=== PATIENT | female | born 1940 | race Caucasian/White ===

== ENCOUNTER 2017-10-01 22:13 | Inpatient (IN) | payer MEDICARE ==
[~2017-10-01] VITALS: Ht 170.2 cm; Wt 101.3 kg
[~2017-10-01 22:13] MED LIST: ASPI81CH PO; ATOR10 PO; CLON.2 PO; CLOP75 PO; FLUO10 PO; GLIM4 PO; HAIR SKIN NAIL1 EACH PO; HYDR10 PO; INSULANPEN SC; LISI20 PO; LORA.5 PO; METF500 PO; METO50 PO; NAPR500 PO; Norco 10-325 T1 EACH PO; SITA100T2 PO
[2017-10-01 23:31] LABS: Hematocrit 22.2 % (33.0-51.0); Mean Corpuscular HGB Conc 31.5 g/dL (31.5-36.5); Mean Corpuscular Volume 95 fL (80-100); Mean Platelet Volume 9.9 fL (9.1-12.4); Platelet Count 240 K/mm3 (150-400); RDW Coefficient Variation 17.7 % (11.7-14.2); RDW Standard Deviation 61.8 fL (35.1-46.3); Red Blood Cell Count 2.33 M/mm3 (3.80-5.20)
[2017-10-01 23:33] LABS: White Blood Cell Count 53.91 K/mm3 (4.00-11.30)
[2017-10-01 23:49] LABS: Alanine Aminotransfer (ALT/SGP 16 U/L (12-78); Albumin, Blood 2.4 g/dL (3.4-5.0); Alk Phos 114 U/L (50-136); Anion Gap 18 mmol/L (6-16); Aspartate Aminotrans (AST/SGOT 20 U/L (12-37); BAND PERCENT MAN 4 % (0-8); BASOPHILS PERCENT MAN 0 % (0-2); Bilirubin, Total 0.8 mg/dL (0.1-1.0); Blood Urea Nitrogen 56 mg/dL (8-24); Bun/Creatinine Ratio 68.5 (12.0-20.0); CO2, Blood 15 mmol/L (21-32); Chloride, Blood 107 mmol/L (98-108); Creatinine, Blood 0.82 mg/dL (0.40-1.00); EOSINOPHILS PERCENT MAN 0 % (0-6); Globulin, Blood 2.4 g/dL (2.2-4.0); Glomerular Filtration Rate >60 (60-); Glucose, Blood 320 mg/dL (70-99); LYMPHOCYTES ABSOLUTE MAN 0.53 K/mm3 (0.84-5.20); LYMPHOCYTES PERCENT MAN 1 % (21-46); METAMYELOCYTE ABSOLUTE MAN 0.53 K/mm3 (0.00-0.00); METAMYELOCYTE PERCENT MAN 1 % (0-0); MONOCYTES PERCENT MAN 0 % (4-13); MYELOCYTE ABSOLUTE MAN 1.61 K/mm3 (0.00-0.00); MYELOCYTE PERCENT MAN 3 % (0-0); NEUTROPHILS ABSOLUTE MAN 51.21 K/mm3 (1.96-9.15); Potassium, Blood 4.8 mmol/L (3.5-5.5); SEG NEUTROPHILS PERCENT MAN 91 % (41-73); Sodium, Blood 140 mmol/L (136-145); TOTAL CELLS COUNTED 100; Total Protein, Blood 4.8 g/dL (6.4-8.2)
[2017-10-02 00:18] LABS: Source, Urine Catheter
[2017-10-02 00:20] LABS: Bilirubin, Urine Neg (Neg); Blood, Urine 2+ (Neg); Glucose Qualitative, Urine 3+ (Neg); Ketones, Urine 3+ (Neg); Leukocyte Esterase, Urine 1+ (Neg); Nitrite, Urine Neg (Neg); Protein, Urine 1+ (Neg); Urobilinogen, Urine NORM (Normal)
[2017-10-02 00:30] LABS: Appearance, Urine Clear (Clear); Color, Urine Yellow (P-Yellow)
[2017-10-02 00:31] LABS: Amorphous Light (0-Heavy); Bacteria Rare /hpf; Red Blood Cells, Urine Not Seen /hpf (0-2); Squamous Epithelial Cells Not Seen /hpf (Few)
[2017-10-02] MEDS ORDERED: LISI20 PO (01:48)
[2017-10-02 11:03] LABS: Hematocrit 24.1 % (33.0-51.0); Hemoglobin 8.1 g/dL (11.5-16.0); Mean Corpuscular HGB 29.6 pg (26.0-34.0); Mean Corpuscular HGB Conc 33.6 g/dL (31.5-36.5); Mean Platelet Volume 9.7 fL (9.1-12.4); Platelet Count 133 K/mm3 (150-400); RDW Coefficient Variation 16.7 % (11.7-14.2); Red Blood Cell Count 2.74 M/mm3 (3.80-5.20); White Blood Cell Count 24.07 K/mm3 (4.00-11.30)
[2017-10-02 11:08] LABS: Mean Corpuscular Volume 88 fL (80-100)
[2017-10-03 02:46] LABS: Hematocrit 22.7 % (33.0-51.0); Hemoglobin 7.6 g/dL (11.5-16.0); Mean Corpuscular HGB 28.8 pg (26.0-34.0); Mean Corpuscular HGB Conc 33.5 g/dL (31.5-36.5); Mean Corpuscular Volume 86 fL (80-100); Mean Platelet Volume 9.5 fL (9.1-12.4); Platelet Count 101 K/mm3 (150-400); RDW Standard Deviation 54.2 fL (35.1-46.3); Red Blood Cell Count 2.64 M/mm3 (3.80-5.20); White Blood Cell Count 8.19 K/mm3 (4.00-11.30)
[2017-10-03 03:06] LABS: Alanine Aminotransfer (ALT/SGP 16 U/L (12-78); Albumin, Blood 2.3 g/dL (3.4-5.0); Albumin/Globulin Ratio 1.2 (0.8-1.8); Alk Phos 83 U/L (50-136); Anion Gap 7 mmol/L (6-16); Aspartate Aminotrans (AST/SGOT 26 U/L (12-37); Bilirubin, Total 0.8 mg/dL (0.1-1.0); Blood Urea Nitrogen 26 mg/dL (8-24); Bun/Creatinine Ratio 36.9 (12.0-20.0); CO2, Blood 25 mmol/L (21-32); Calcium, Blood 7.3 mg/dL (8.5-10.1); Chloride, Blood 112 mmol/L (98-108); Globulin, Blood 1.9 g/dL (2.2-4.0); Glomerular Filtration Rate >60 (60-); Glucose, Blood 108 mg/dL (70-99); Potassium, Blood 3.4 mmol/L (3.5-5.5); Sodium, Blood 144 mmol/L (136-145); Total Protein, Blood 4.2 g/dL (6.4-8.2)
[2017-10-03 03:24] LABS: BAND PERCENT MAN 1 % (0-8); BASOPHILS ABSOLUTE MAN 0.08 K/mm3 (0.00-0.23); BASOPHILS PERCENT MAN 1 % (0-2); EOSINOPHILS PERCENT MAN 5 % (0-6); LYMPHOCYTES ABSOLUTE MAN 0.98 K/mm3 (0.84-5.20); LYMPHOCYTES PERCENT MAN 12 % (21-46); MONOCYTES ABSOLUTE MAN 0.16 K/mm3 (0.16-1.47); MONOCYTES PERCENT MAN 2 % (4-13); NEUTROPHILS ABSOLUTE MAN 6.55 K/mm3 (1.96-9.15); SEG NEUTROPHILS PERCENT MAN 79 % (41-73); TOTAL CELLS COUNTED 100
[2017-10-04 04:11] LABS: BASOPHILS ABSOLUTE AUTO 0.01 K/mm3 (0.00-0.23); BASOPHILS PERCENT AUTO 0 % (0-2); EOSINOPHILS ABSOLUTE AUTO 0.32 K/mm3 (0.00-0.68); EOSINOPHILS PERCENT AUTO 5 % (0-6); Hematocrit 24.4 % (33.0-51.0); Hemoglobin 8.1 g/dL (11.5-16.0); IMMATURE GRAN ABSOLUTE AUTO 0.02 K/mm3 (0.00-0.10); IMMATURE GRAN PERCENT AUTO 0 % (0-1); LYMPHOCYTES ABSOLUTE AUTO 0.96 K/mm3 (0.84-5.20); LYMPHOCYTES PERCENT AUTO 15 % (21-46); MONOCYTES ABSOLUTE AUTO 0.51 K/mm3 (0.16-1.47); MONOCYTES PERCENT AUTO 8 % (4-13); Mean Corpuscular HGB 29.2 pg (26.0-34.0); Mean Corpuscular HGB Conc 33.2 g/dL (31.5-36.5); Mean Corpuscular Volume 88 fL (80-100); Mean Platelet Volume 9.8 fL (9.1-12.4); NEUTROPHILS ABSOLUTE AUTO 4.78 K/mm3 (1.96-9.15); NEUTROPHILS PERCENT AUTO 73 % (41-73); Platelet Count 111 K/mm3 (150-400); RDW Coefficient Variation 16.4 % (11.7-14.2); RDW Standard Deviation 53.1 fL (35.1-46.3); Red Blood Cell Count 2.77 M/mm3 (3.80-5.20)
[2017-10-04 04:15] LABS: Anion Gap 5 mmol/L (6-16); Blood Urea Nitrogen 10 mg/dL (8-24); Bun/Creatinine Ratio 15.8 (12.0-20.0); CO2, Blood 26 mmol/L (21-32); Calcium, Blood 7.6 mg/dL (8.5-10.1); Chloride, Blood 109 mmol/L (98-108); Creatinine, Blood 0.63 mg/dL (0.40-1.00); Glomerular Filtration Rate >60 (60-); Glucose, Blood 97 mg/dL (70-99); Potassium, Blood 3.2 mmol/L (3.5-5.5); Sodium, Blood 140 mmol/L (136-145)
[2017-10-05 05:29] LABS: Hematocrit 25.7 % (33.0-51.0); Hemoglobin 8.5 g/dL (11.5-16.0); Mean Corpuscular HGB 28.8 pg (26.0-34.0); Mean Corpuscular HGB Conc 33.1 g/dL (31.5-36.5); Mean Corpuscular Volume 87 fL (80-100); Mean Platelet Volume 9.9 fL (9.1-12.4); Platelet Count 126 K/mm3 (150-400); RDW Coefficient Variation 15.9 % (11.7-14.2); RDW Standard Deviation 50.7 fL (35.1-46.3); Red Blood Cell Count 2.95 M/mm3 (3.80-5.20); White Blood Cell Count 7.59 K/mm3 (4.00-11.30)
[2017-10-05 05:52] LABS: BAND PERCENT MAN 6 % (0-8); BASOPHILS PERCENT MAN 0 % (0-2); EOSINOPHILS PERCENT MAN 0 % (0-6); LYMPHOCYTES ABSOLUTE MAN 1.44 K/mm3 (0.84-5.20); LYMPHOCYTES PERCENT MAN 19 % (21-46); METAMYELOCYTE ABSOLUTE MAN 0.15 K/mm3 (0.00-0.00); METAMYELOCYTE PERCENT MAN 2 % (0-0); MONOCYTES ABSOLUTE MAN 0.22 K/mm3 (0.16-1.47); MONOCYTES PERCENT MAN 3 % (4-13); NEUTROPHILS ABSOLUTE MAN 5.76 K/mm3 (1.96-9.15); SEG NEUTROPHILS PERCENT MAN 70 % (41-73); TOTAL CELLS COUNTED 100
[2017-10-06 05:11] LABS: BASOPHILS ABSOLUTE AUTO 0.02 K/mm3 (0.00-0.23); BASOPHILS PERCENT AUTO 0 % (0-2); EOSINOPHILS PERCENT AUTO 2 % (0-6); Hematocrit 23.8 % (33.0-51.0); Hemoglobin 8.1 g/dL (11.5-16.0); IMMATURE GRAN ABSOLUTE AUTO 0.08 K/mm3 (0.00-0.10); IMMATURE GRAN PERCENT AUTO 2 % (0-1); LYMPHOCYTES ABSOLUTE AUTO 1.55 K/mm3 (0.84-5.20); LYMPHOCYTES PERCENT AUTO 29 % (21-46); MONOCYTES PERCENT AUTO 13 % (4-13); Mean Corpuscular HGB 29.1 pg (26.0-34.0); Mean Corpuscular Volume 86 fL (80-100); Mean Platelet Volume 9.8 fL (9.1-12.4); NEUTROPHILS ABSOLUTE AUTO 2.84 K/mm3 (1.96-9.15); NEUTROPHILS PERCENT AUTO 54 % (41-73); Platelet Count 124 K/mm3 (150-400); RDW Coefficient Variation 15.6 % (11.7-14.2); RDW Standard Deviation 49.2 fL (35.1-46.3); Red Blood Cell Count 2.78 M/mm3 (3.80-5.20); White Blood Cell Count 5.29 K/mm3 (4.00-11.30)
[2017-10-06 05:47] LABS: Alanine Aminotransfer (ALT/SGP 28 U/L (12-78); Albumin, Blood 2.6 g/dL (3.4-5.0); Albumin/Globulin Ratio 1.1 (0.8-1.8); Alk Phos 98 U/L (50-136); Anion Gap 7 mmol/L (6-16); Aspartate Aminotrans (AST/SGOT 30 U/L (12-37); Bilirubin, Total 0.4 mg/dL (0.1-1.0); Blood Urea Nitrogen 5 mg/dL (8-24); Bun/Creatinine Ratio 8.6 (12.0-20.0); CO2, Blood 29 mmol/L (21-32); Chloride, Blood 107 mmol/L (98-108); Creatinine, Blood 0.58 mg/dL (0.40-1.00); Globulin, Blood 2.3 g/dL (2.2-4.0); Glomerular Filtration Rate >60 (60-); Glucose, Blood 90 mg/dL (70-99); Sodium, Blood 143 mmol/L (136-145); Total Protein, Blood 4.9 g/dL (6.4-8.2)
[2017-10-07] MEDS ORDERED: ACET325 PO (10:11)
[2017-10-07] MEDS ORDERED: Amoxicillin500 MG PO (10:12)
[2017-10-07] MEDS ORDERED: CLON.1 PO (10:13)
[2017-10-07] MEDS ORDERED: LOSA50 PO (10:14)
[2017-10-07] MEDS ORDERED: NYSTATIN1 EAC1 TOP (10:15)
[2017-10-07] MEDS ORDERED: POTCHL10ER PO (10:16)
[2017-10-07] MEDS ORDERED: PANT40 PO (10:16)
[2018-07-11] MEDS ORDERED: HYDR10 PO (11:53)
[2018-07-11] MEDS ORDERED: Metoprolol Tart25 MG PO (11:54)
[2018-07-11] MEDS ORDERED: CLON.1 PO (11:54)
[2018-07-11] MEDS ORDERED: GLIM4 PO (11:54)
[2018-07-11] MEDS ORDERED: METF500C PO (11:55)
[2018-07-11] MEDS ORDERED: INSULANPEN SC (11:55)
[2018-07-11] MEDS ORDERED: SITA100T2 PO (11:55)
[2018-07-11] MEDS ORDERED: CLOP75 PO (11:56)
[2018-07-11] MEDS ORDERED: MELA3 PO (11:56)
[2018-07-11] MEDS ORDERED: Omega 3 1,0001 EACH PO (11:56)
[2018-07-11] MEDS ORDERED: LO-DOSE ASPIRIN81 MG PO (11:57)
[2018-07-11] MEDS ORDERED: OXYB5 PO (11:57)
[2018-07-11] MEDS ORDERED: HALO.5 PO (11:58)
[2018-07-11] MEDS ORDERED: METOCLOPRAM5 MG/5 ML PO (11:59)
[2018-07-11] MEDS ORDERED: Prozac20 MG PO (11:59)
[2018-07-11] MEDS ORDERED: Omeprazole20 M1 PO (12:00)
[2018-07-13] MEDS ORDERED: CIPR500 PO (10:31)
[2018-07-13] MEDS ORDERED: HYDR1TAB94 PO (10:31)
== END 2017-10-08 18:13 | disposition home or self-care (01) | DRG 871 ==
LOC: ER 22:13 → PCU 10-02 00:10 → MEDS 10-04 18:23 → ENPENDDIS 10-07 10:06 → EDPENDDIS 10-07 11:08 → EDPENDDISTM 10-07 11:08 → MEDS 10-08 18:13
PROVIDERS: Emergency Medicine; Family Medicine; Hospitalist
PROC: 30233N1 Transfusion of Nonautologous Red Blood Cells into Peripheral Vein, Percutaneous Approach (ICD-10-PCS; principal; 2017-10-02)
PROC: 3E0234Z Introduction of Serum, Toxoid and Vaccine into Muscle, Percutaneous Approach (ICD-10-PCS; 2017-10-02)
DX: A41.9 Sepsis, unspecified organism (principal); G93.41 Metabolic encephalopathy; E87.2 Acidosis; K92.2 Gastrointestinal hemorrhage, unspecified; E11.40 Type 2 diabetes mellitus with diabetic neuropathy, unspecified; E66.01 Morbid (severe) obesity due to excess calories; N39.0 Urinary tract infection, site not specified; C50.911 Malignant neoplasm of unspecified site of right female breast; B95.5 Unspecified streptococcus as the cause of diseases classified elsewhere; D50.0 Iron deficiency anemia secondary to blood loss (chronic); D72.829 Elevated white blood cell count, unspecified; E11.9 Type 2 diabetes mellitus without complications; F32.9 Major depressive disorder, single episode, unspecified; I10 Essential (primary) hypertension; T45.8X5A Adverse effect of other primarily systemic and hematological agents, initial encounter; Z23 Encounter for immunization; F41.9 Anxiety disorder, unspecified; Z68.34 Body mass index [BMI] 34.0-34.9, adult
CPT/HCPCS: 36415; 36430; 51701; 51702; 70450; 71045; 74018; 80048; 80053; 81001; 82272; 82947; 83605; 83690; 85025; 85027; 86850; 86900; 86901; 86920; 87040; 87086; 93005; 93010; 96374; 96375; 97110; 97116; 97162; 97530; 99285; C1751; C9113; G8978; G8979; J0360; J0696; J1815; J1817; J2060; J2270; J2405; J7030; P9016

== ENCOUNTER → 2018-11-09 | Outpatient (CLI) | payer MEDICARE ==
[~2018-11-09] MED LIST changes: +ACET325 PO; +Amoxicillin500 MG PO; +CIPR500 PO; +CLON.1 PO; +HALO.5 PO; +HYDR1TAB94 PO; +LO-DOSE ASPIRIN81 MG PO; +LOSA50 PO; +MELA3 PO; +METF500C PO; +METOCLOPRAM5 MG/5 ML PO; +Metoprolol Tart25 MG PO; +NYSTATIN1 EAC1 TOP; +OXYB5 PO; +Omega 3 1,0001 EACH PO; +Omeprazole20 M1 PO; +PANT40 PO; +POTCHL10ER PO; +Prozac20 MG PO
== END | disposition home or self-care (01) ==
LOC: LAB SHORT 18:20 → LAB 18:20
DX: N39.3 Stress incontinence (female) (male) (principal)
CPT/HCPCS: 87086

== ENCOUNTER → 2019-02-14 | Outpatient (CLI) | payer MEDICARE ==
[2019-02-14 19:17] LABS: Free Thyroxine 1.25 ng/dL (0.70-1.60)
[2019-02-14 19:24] LABS: Alanine Aminotransfer (ALT/SGP 41 U/L (12-78); Albumin, Blood 3.4 g/dL (3.4-5.0); Albumin/Globulin Ratio 0.9 (0.8-1.8); Alk Phos 101 U/L (50-136); Anion Gap 9 mmol/L (6-16); Aspartate Aminotrans (AST/SGOT 30 U/L (12-37); Bilirubin, Total 0.3 mg/dL (0.1-1.0); Blood Urea Nitrogen 23 mg/dL (8-24); Bun/Creatinine Ratio 30.9 (12.0-20.0); CO2, Blood 22 mmol/L (21-32); Calcium, Blood 8.7 mg/dL (8.5-10.1); Chloride, Blood 108 mmol/L (98-108); Creatinine, Blood 0.75 mg/dL (0.40-1.00); Globulin, Blood 3.6 g/dL (2.2-4.0); Glomerular Filtration Rate >60 (60-); Glucose, Blood 110 mg/dL (70-99); Potassium, Blood 4.2 mmol/L (3.5-5.5); Sodium, Blood 139 mmol/L (136-145)
== END | disposition home or self-care (01) ==
LOC: LAB 18:45 → LAB SHORT 18:45
PROVIDERS: Hospitalist
DX: I10 Essential (primary) hypertension (principal)
CPT/HCPCS: 80053; 84439; 84443

== ENCOUNTER → 2019-09-14 | Outpatient (CLI) | payer MEDICARE | END | disposition home or self-care (01) | LOC: LAB SHORT 19:01 → LAB 19:01 | DX: N39.0 Urinary tract infection, site not specified (principal) | CPT/HCPCS: 87086 ==

== ENCOUNTER 2020-03-15 10:57 | Inpatient (IN) | payer MEDICARE ==
[~2020-03-15] VITALS: Ht 172.7 cm; Wt 107.1 kg
[2020-03-15] MEDS ORDERED: CLON.1 PO (11:46)
[2020-03-15] MEDS ORDERED: HYDR10 PO (11:47)
--- NOTE | 2020-03-15 12:16 | NUR ---
INTO [facility] VIA WHEELCHAIR WITH AT BEDSIDE. History, Chart, Medications and Allergies reviewed before start of procedure.Patient confirms NPO status and agrees with scheduled surgery. Patient reports completing Chlorhexadine shower X2 prior to admission to hospital.Surgical site prepped with 2% Chlorhexidine cloth wipe. Lungs clear T/O to Auscultation.PT CONFUSED AT BASELINE. REPORTS COMPLETION OF SHOWERS AND MUPIROCIN OINTMENT IN NAIRS PRESCRIBED
--- NOTE | 2020-03-15 18:53 | NUR ---
PATIENT MORE RELAXED AFTER PO AND IV PAIN MEDS ADMIN. CIRC CHECKS TO RLE WNL. ICE PACK IN PLACE. IVF INFUSING PER ORDER. SPOUSE AT BEDSIDE. CALL LIGHT IN REACH. BED ALARM IN PLACE. FC PATENT AND DRAINING. WILL REPORT TO BUTCH PATEL.
[2020-03-16 04:40] LABS: BASOPHILS ABSOLUTE AUTO 0.02 K/mm3 (0.00-0.23); BASOPHILS PERCENT AUTO 0 % (0-2); EOSINOPHILS ABSOLUTE AUTO 0.02 K/mm3 (0.00-0.68); EOSINOPHILS PERCENT AUTO 0 % (0-6); Hematocrit 32.6 % (33.0-51.0); Hemoglobin 10.1 g/dL (11.5-16.0); IMMATURE GRAN ABSOLUTE AUTO 0.05 K/mm3 (0.00-0.10); IMMATURE GRAN PERCENT AUTO 0 % (0-1); LYMPHOCYTES ABSOLUTE AUTO 1.11 K/mm3 (0.84-5.20); LYMPHOCYTES PERCENT AUTO 10 % (21-46); MONOCYTES ABSOLUTE AUTO 1.06 K/mm3 (0.16-1.47); MONOCYTES PERCENT AUTO 9 % (4-13); Mean Corpuscular HGB 28.7 pg (26.0-34.0); Mean Corpuscular Volume 93 fL (80-100); Mean Platelet Volume 10.2 fL (9.1-12.4); NEUTROPHILS ABSOLUTE AUTO 9.15 K/mm3 (1.96-9.15); NEUTROPHILS PERCENT AUTO 80 % (41-73); Platelet Count 124 K/mm3 (150-400); RDW Standard Deviation 47.4 fL (35.1-46.3); Red Blood Cell Count 3.52 M/mm3 (3.80-5.20); White Blood Cell Count 11.41 K/mm3 (4.00-11.30)
[2020-03-16 05:00] LABS: Bun/Creatinine Ratio 17.2 (12.0-20.0); Creatinine, Blood 1.16 mg/dL (0.40-1.00); Magnesium, Blood 1.9 mg/dL (1.6-2.4); Potassium, Blood 4.7 mmol/L (3.5-5.5)
--- NOTE | 2020-03-16 06:38 | NUR ---
SHIFT SUMMARY: DESTINY IS A&OX2. SHE DID HAVE SOME ADDITIONAL CONFUSION DURING THE NIGHT, THINKING THAT SHE NEEDED TO GET UP FOR SURGERY. IS TOLERATING PO INTAKE WELL, VORACIOUS APPETITE. EDUCATED ON DIABETIC DIET. IV TO R WRIST PATENT, SALINE LOCKED. AQUACELL TO R KNEE C/D&I, POLAR PACK IN PLACE. CONTINUOUS PULSE OX IN PLACE. VSS, NO ACUTE EVENTS OVERNIGHT. SATURATIONS MAINTAINING WITH 2 L VIA NC. AT BEDSIDE. WILL REPORT TO DAY SHIFT RN.
--- NOTE | 2020-03-16 16:44 | NUR ---
SHIFT SUMMARY PT A&OX1-2, FORGETFUL, PLEASANT AND COOPERATIVE; AT BEDSIDE. POD1 R TKA, AQUACEL CDI, TEDS/SCDS/POLAR GRACE. PAIN MANAGED WITH OXYCODONE, TYLENOL AND TORADOL. STACIA PO, DENIES N&V. CBGS AC/HS; LUNCH REQUIRED COVERAGE. AMB W/FWW & GB, 1 PP MOD ASSIST TO BRP/CHAIR/BED. VOIDING WELL. WILL REPORT TO ONCOMING NOC RN.
--- NOTE | 2020-03-17 04:34 | NUR ---
SHIFT SUMMARY: DESTINY IS A&O X 1-2. VSS, NO ACUTE EVENTS OVERNIGHT. SHE IS A ONE PERSON ASSIST TO THE BEDSIDE COMMODE. SHE HAS URINARY FREQUENCY AND OCCASIONAL INCONTINENCE, ATTENDS IN PLACE. SHE IS TOLERATING PO INTAKE WELL. IV TO R WRIST PATENT. AT BEDSIDE. CONTINUOUS PULSE OX IN PLACE, MAINTAINING OXYGEN SATURATIONS ORA. SHE IS ABLE TO MAKE HER NEEDS KNOWN, USES THE CALL LIGHT APPROPRIATELY. WILL REPORT TO DAY SHIFT RN.
--- NOTE | 2020-03-17 18:32 | NUR ---
SHIFT SUMMARY PT A&OX2, PLEASANT & COOPERATIVE, AT BEDSIDE. POD2 R TKA, AQUACEL CDI, TEDS/SCDS/POLAR GRACE. PAIN MANAGED WITH 10 MG OXYCODONE, TORADOL & TYLENOL. BIOX AT BEDSIDE; RA. STACIA PO, DENIES N&V. CBGS LUNCH COVERAGE REQ. AMB SBA FWW & GB TO BRP/BED/CHAIR. VOIDING WELL; SOFT BMS TODAY. WILL REPORT TO ONCOMING NOC RN.
--- NOTE | 2020-03-18 05:18 | NUR ---
SHIFT SUMMARY PT IS ALERT, ORIENTED TO SELF AND FAMILY. PT VERY FORGETFUL / CONFUSED. PT HAS BEEN UP TO COMMODE OR BATHROOM FREQUENTLY T/O SHIFT AND HAS ALSO HAD SEVERAL INCONTINENT VOIDS. PT USES FWW AND GAIT BELT WITH 1X ASSIST WHEN UP. ATTENS IN PLACE AND CHANGED PRN. PAIN MANAGED WITH PO PAIN MED PER ORDER. PT TOLERATING WELL. BED ALARM IN USE T/O SHIFT. POLAR PACK IN PLACE. AQUACEL CDI. NO ACUTE CHANGES.
--- NOTE | 2020-03-18 09:32 | NUR ---
RECENTLY GIVEN REPORT AND AM ASSUMING CARE OF PT.
--- NOTE | 2020-03-18 09:34 | NUR ---
PT RECENTLY WORKING WITH THERAPY WITH FAMILY IN ROOM.
--- NOTE | 2020-03-18 10:33 | NUR ---
NOEMI GIVEN REPORT AND IS ASSUMING CARE OF PT AT THIS TIME.
--- NOTE | 2020-03-18 15:56 | NUR ---
DISCHARGE: PT DC TO [facility] AT THIS TIME WITH WHEELCHAIR TRANSPORT. BELONGINGS SENT WITH PT/. NOTIFIED HE WILL BE UNABLE TO STAY WITH HER AT REHAB. DRESSING SUPPLIES AND POLAR PACK SENT. PT BLOOD SUGAR 211 PRIOR TO DC, TREATED PER SLIDING SCALE AND MEDICATED WITH TYLENOL SCHEDULED. NO IV. REPORT CALLED TO ACCEPTING RN.
== END 2020-03-18 16:25 | DRG 470 ==
LOC: ORSCMMR 10:57 → SURS 17:12 → ORSCMMR 03-16 11:56 → SURS 03-16 11:57
PROVIDERS: ADMIT Orthopaedic Surgery
PROC: 0SRC0J9 Replacement of Right Knee Joint with Synthetic Substitute, Cemented, Open Approach (ICD-10-PCS; principal; 2020-03-15 12:30)
DX: M17.11 Unilateral primary osteoarthritis, right knee (principal); I10 Essential (primary) hypertension; E11.9 Type 2 diabetes mellitus without complications; Z87.891 Personal history of nicotine dependence
CPT/HCPCS: 36415; 73560-RT; 80048; 82947; 83735; 85025; 94762; 97110; 97116; 97162; A9270; A9270-GY; C1713; C1776; J0171; J0690; J0735; J1100; J1170; J1885; J2370; J2405; J2704; J2795; J3010; J7120; U0002

== ENCOUNTER → 2020-09-24 | Outpatient (CLI) | payer MEDICARE ==
[~2020-09-24] MED LIST changes: +AZIT250 PO; +BASAGLAR K100 UNIT/1 SC; +Buspirone HCl15 MG PO; +CEPH500 PO; +DEXA2; +DULO60 PO; +HUMALOG MI100 UNIT/2 SC; +HYDPAM25 PO; +INSULIN LI100 UNIT/7 SQ; +MUPIROCIN1 G1 TOP; +Seroquel Xr50 MG PO; +TRIDERM28.4 GM TOP; +[UNRECOGNIZED DRUG - OTHER] TOP
[2020-09-24 19:48] LABS: BASOPHILS ABSOLUTE AUTO 0.05 K/mm3 (0.00-0.23); BASOPHILS PERCENT AUTO 1 % (0-2); EOSINOPHILS ABSOLUTE AUTO 0.51 K/mm3 (0.00-0.68); EOSINOPHILS PERCENT AUTO 7 % (0-6); Hematocrit 41.6 % (33.0-51.0); IMMATURE GRAN ABSOLUTE AUTO 0.02 K/mm3 (0.00-0.10); IMMATURE GRAN PERCENT AUTO 0 % (0-1); LYMPHOCYTES ABSOLUTE AUTO 1.65 K/mm3 (0.84-5.20); LYMPHOCYTES PERCENT AUTO 23 % (21-46); MONOCYTES ABSOLUTE AUTO 0.45 K/mm3 (0.16-1.47); MONOCYTES PERCENT AUTO 6 % (4-13); Mean Corpuscular HGB 26.5 pg (26.0-34.0); Mean Corpuscular HGB Conc 31.3 g/dL (31.5-36.5); Mean Corpuscular Volume 85 fL (80-100); Mean Platelet Volume 10.2 fL (9.1-12.4); NEUTROPHILS ABSOLUTE AUTO 4.57 K/mm3 (1.96-9.15); NEUTROPHILS PERCENT AUTO 63 % (41-73); Platelet Count 129 K/mm3 (150-400); RDW Coefficient Variation 14.2 % (11.7-14.2); RDW Standard Deviation 44.1 fL (35.1-46.3); Red Blood Cell Count 4.91 M/mm3 (3.80-5.20); White Blood Cell Count 7.25 K/mm3 (4.00-11.30)
[2020-09-24 20:40] LABS: Albumin/Globulin Ratio 0.8 (0.8-1.8); Bilirubin, Total 0.3 mg/dL (0.1-1.0); Creatinine, Blood 1.06 mg/dL (0.40-1.00); Globulin, Blood 3.6 g/dL (2.2-4.0); Potassium, Blood 4.1 mmol/L (3.5-5.5); Total Protein, Blood 6.6 g/dL (6.4-8.2)
== END ==
LOC: LAB SHORT 15:50
PROVIDERS: Hospitalist
DX: E11.42 Type 2 diabetes mellitus with diabetic polyneuropathy (principal); L50.9 Urticaria, unspecified
CPT/HCPCS: 80053; 83036; 85025

== ENCOUNTER 2020-11-13 21:09 | Inpatient (IN) | payer MEDICARE ==
[~2020-11-13] VITALS: Ht 170.2 cm; Wt 111.1 kg
[~2020-11-13 21:09] MED LIST changes: -AZIT250 PO; -BASAGLAR K100 UNIT/1 SC; -Buspirone HCl15 MG PO; -DEXA2; -DULO60 PO; -HUMALOG MI100 UNIT/2 SC; -HYDPAM25 PO; -INSULIN LI100 UNIT/7 SQ; -MUPIROCIN1 G1 TOP; -Seroquel Xr50 MG PO; -TRIDERM28.4 GM TOP; -[UNRECOGNIZED DRUG - OTHER] TOP
[2020-11-13] MEDS ORDERED: INSULIN LI100 UNIT/7 SQ (21:36)
[2020-11-13 21:43] LABS: BASOPHILS ABSOLUTE AUTO 0.01 K/mm3 (0.00-0.23); BASOPHILS PERCENT AUTO 0 % (0-2); EOSINOPHILS ABSOLUTE AUTO 0.02 K/mm3 (0.00-0.68); EOSINOPHILS PERCENT AUTO 1 % (0-6); Hematocrit 42.7 % (33.0-51.0); Hemoglobin 14.2 g/dL (11.5-16.0); IMMATURE GRAN ABSOLUTE AUTO 0.02 K/mm3 (0.00-0.10); IMMATURE GRAN PERCENT AUTO 1 % (0-1); LYMPHOCYTES ABSOLUTE AUTO 0.81 K/mm3 (0.84-5.20); LYMPHOCYTES PERCENT AUTO 32 % (21-46); MONOCYTES ABSOLUTE AUTO 0.22 K/mm3 (0.16-1.47); MONOCYTES PERCENT AUTO 9 % (4-13); Mean Corpuscular HGB 27.3 pg (26.0-34.0); Mean Corpuscular HGB Conc 33.3 g/dL (31.5-36.5); Mean Corpuscular Volume 82 fL (80-100); Mean Platelet Volume 11.2 fL (9.1-12.4); NEUTROPHILS ABSOLUTE AUTO 1.45 K/mm3 (1.96-9.15); NEUTROPHILS PERCENT AUTO 57 % (41-73); Platelet Count 52 K/mm3 (150-400); RDW Coefficient Variation 13.7 % (11.7-14.2); RDW Standard Deviation 40.8 fL (35.1-46.3); White Blood Cell Count 2.53 K/mm3 (4.00-11.30)
[2020-11-13 22:01] LABS: Alanine Aminotransfer (ALT/SGP 45 U/L (12-78); Albumin, Blood 2.6 g/dL (3.4-5.0); Albumin/Globulin Ratio 0.8 (0.8-1.8); Alk Phos 79 U/L (50-136); Anion Gap 3 mmol/L (6-16); Aspartate Aminotrans (AST/SGOT 79 U/L (12-37); Bilirubin, Total 0.7 mg/dL (0.1-1.0); Blood Urea Nitrogen 18 mg/dL (8-24); Bun/Creatinine Ratio 18.2 (12.0-20.0); CO2, Blood 28 mmol/L (21-32); Calcium, Blood 7.7 mg/dL (8.5-10.1); Chloride, Blood 98 mmol/L (98-108); Creatinine, Blood 0.99 mg/dL (0.40-1.00); Globulin, Blood 3.1 g/dL (2.2-4.0); Glomerular Filtration Rate 58 (60-); Glucose, Blood 313 mg/dL (70-99); Potassium, Blood 3.9 mmol/L (3.5-5.5); Sodium, Blood 129 mmol/L (136-145); Total Protein, Blood 5.7 g/dL (6.4-8.2)
[2020-11-14] LABS: International Normalized Ratio 1.1; Prothrombin Time Results 11.7 Sec (9.7-11.5)
--- NOTE | 2020-11-14 04:05 | NUR ---
SHIFT SUMMARY PT ARRIVED TO THE UNIT AROUND 0100. VITALS STABLE, BP 132/78. HR 70BPM IN SINUS RHYTHM. PT WAS ON 4LPM VIA NC WITH O2 SATS >95%. O2 DECREASED TO 3LPM WITH O2 SATS REMAINING ABOVE 90%. PT DENIED ANY SOB, BREATHING WAS SHALLOW AND AROUND 22 BREATHS/MIN WITH AUDIBLE EXPIRATORY WHEEZING. PT DENIED ANY PAIN. VITALS AND O2 REMAINED STABLE T/O THE SHIFT. PT WAS CONFUSED, KNEW WHERE SHE WAS AND WHO SHE WAS BUT COULD NOT ANSWER ANY OTHER QUESTIONS. SHE WOULD ANSWER WITH "I DONT REMEMBER" AND HAS VERY SHORT MEMORY. PT TAUGHT HOW TO USE CALL LIGHT AND WAS UNABLE TO REMEMBER AND TEACH BACK. CONTINOUSLY REMINDED PT HOW TO USE CALL LIGHT AND TO CALL IF SHE NEEDED TO GET UP. PT WAS WEAK IN BLE AND BUE, ALL EXTREMITIES WERE COOL TO TOUCH. PT HAS REMAINED IN BED AND IS SITTING UP WATCHING TV.
[2020-11-14 04:33] LABS: Hematocrit 39.5 % (33.0-51.0); Hemoglobin 13.2 g/dL (11.5-16.0); Mean Corpuscular HGB 27.1 pg (26.0-34.0); Mean Corpuscular HGB Conc 33.4 g/dL (31.5-36.5); Mean Corpuscular Volume 81 fL (80-100); Mean Platelet Volume 11.7 fL (9.1-12.4); RDW Coefficient Variation 13.8 % (11.7-14.2); RDW Standard Deviation 40.6 fL (35.1-46.3); Red Blood Cell Count 4.87 M/mm3 (3.80-5.20); White Blood Cell Count 1.81 K/mm3 (4.00-11.30)
[2020-11-14 04:52] LABS: Anion Gap 6 mmol/L (6-16); Blood Urea Nitrogen 17 mg/dL (8-24); Bun/Creatinine Ratio 19.3 (12.0-20.0); CO2, Blood 25 mmol/L (21-32); Calcium, Blood 7.7 mg/dL (8.5-10.1); Chloride, Blood 97 mmol/L (98-108); Creatinine, Blood 0.88 mg/dL (0.40-1.00); Glomerular Filtration Rate >60 (60-); Glucose, Blood 333 mg/dL (70-99); Potassium, Blood 4.1 mmol/L (3.5-5.5); Sodium, Blood 128 mmol/L (136-145)
[2020-11-14 05:11] LABS: Platelet Count 45 K/mm3 (150-400)
--- NOTE | 2020-11-14 16:52 | NUR ---
SHIFT SUMMARY NO ACUTE EVENTS THIS SHIFT, VSS. PATIENT TITRATED DOWN TO 3 L VIA NASAL CANNULA, MAINTAINING O2 SATS IN LOW 90S. PATIENT IS ORIENTED TO SELF AND TO LOCATION, STATES THAT SHE "WASN'T DOING VERY WELL SO [HER] SON BROUGHT [HER] INTO THE HOSPITAL." HOWEVER PATIENT ALSO STATES THAT SHE LIVES WITH HER FATHER AND THAT HER IS 44. PATIENT INCONTINENT, BRIEFS CHANGED AND PATIENT REPOSITIONED T/O SHIFT BY NURSING STAFF. HEPARIN DRIP RUNNING PER PHARMACY ORDERS. PLAN IS FOR POSSIBLE PROCEDURE FOR CLOT REMOVAL WITH DR. WILKS TOMORROW.
--- NOTE | 2020-11-14 21:47 | NUR ---
HEPARIN DRIP STOPPED AT 2145
[2020-11-15 02:38] LABS: Glucose, Blood 224 mg/dL (70-99)
--- NOTE | 2020-11-15 04:27 | NUR ---
SHIFT SUMMARY PT HAS BEEN ALERT AND PLEASANTLY CONFUSED OVERNIGHT. USING 3L O2 NC WITH O2 SAT ABOVE 92%. REPOSITIONED/TURNED MULT TIMES AND ATTENS CHANGED PRN. HAS BEEN NPO SINCE MIDNIGHT FOR POSSIBLE PROCEDURE TODAY. TELE AND BIOX IN USE OVERNIGHT WITH NO ACUTE CHANGES. HEPARIN DRIP INFUSING PER ORDERS; TURNED OFF FROM [id number] PER PHARMACY AND THEN RESTARTED AT LOWER RATE AT 2245. PT RESTING IN BED AT THIS TIME WITH CALL LIGHT IN REACH.
[2020-11-15 07:56] LABS: BASOPHILS ABSOLUTE AUTO 0.01 K/mm3 (0.00-0.23); BASOPHILS PERCENT AUTO 0 % (0-2); EOSINOPHILS PERCENT AUTO 0 % (0-6); Hematocrit 39.2 % (33.0-51.0); IMMATURE GRAN ABSOLUTE AUTO 0.01 K/mm3 (0.00-0.10); IMMATURE GRAN PERCENT AUTO 0 % (0-1); LYMPHOCYTES ABSOLUTE AUTO 0.84 K/mm3 (0.84-5.20); LYMPHOCYTES PERCENT AUTO 30 % (21-46); MONOCYTES ABSOLUTE AUTO 0.27 K/mm3 (0.16-1.47); MONOCYTES PERCENT AUTO 10 % (4-13); Mean Corpuscular HGB 27.4 pg (26.0-34.0); Mean Corpuscular HGB Conc 33.2 g/dL (31.5-36.5); Mean Corpuscular Volume 83 fL (80-100); Mean Platelet Volume 10.9 fL (9.1-12.4); NEUTROPHILS ABSOLUTE AUTO 1.63 K/mm3 (1.96-9.15); NEUTROPHILS PERCENT AUTO 59 % (41-73); Platelet Count 59 K/mm3 (150-400); RDW Coefficient Variation 13.8 % (11.7-14.2); RDW Standard Deviation 41.2 fL (35.1-46.3); Red Blood Cell Count 4.75 M/mm3 (3.80-5.20); White Blood Cell Count 2.76 K/mm3 (4.00-11.30)
[2020-11-15 08:05] LABS: Bun/Creatinine Ratio 22.5 (12.0-20.0); Calcium, Blood 7.9 mg/dL (8.5-10.1); Creatinine, Blood 1.02 mg/dL (0.40-1.00); Potassium, Blood 3.7 mmol/L (3.5-5.5)
[2020-11-15 09:18] LABS: Platelet Count 65 K/mm3 (150-400)
--- NOTE | 2020-11-15 16:17 | NUR ---
SHIFT SUMMARY HEPARIN GTT STOPPED TODAY & PT STARTED ON LOVENOX. PT APTT CRITCAL THIS AM, BUT TRENDING DOWN SINCE HEPARIN HAS BEEN STOPPED. PT RECIEVED BEDBATH TODAY. REPOSITIONED Q2H WITH BREIF CHANGES T/O DAY. TELE RUNNING SINUS RUBENS FROM 55-65 BPM. AFEBRILE. SATING ON 3L O2 AT 94-95%. BASELINE RA. DC PLANNING INFORMED THAT PT IS ALSO HOSPITALIZED AND IS IN ROOM 353. NO OTHER ACUTE CHANGES IN ASSESSMENT AT THIS TIME. VS REVIEWED. PT SITTING UPIN BED. ALARM SET. CALL LIGHT IN REACH. ISOLATION PRECAUTIONS IN PLACE.
[2020-11-16 04:34] LABS: BASOPHILS ABSOLUTE AUTO 0.01 K/mm3 (0.00-0.23); BASOPHILS PERCENT AUTO 0 % (0-2); EOSINOPHILS PERCENT AUTO 0 % (0-6); Hematocrit 37.8 % (33.0-51.0); Hemoglobin 12.6 g/dL (11.5-16.0); IMMATURE GRAN ABSOLUTE AUTO 0.01 K/mm3 (0.00-0.10); IMMATURE GRAN PERCENT AUTO 0 % (0-1); LYMPHOCYTES ABSOLUTE AUTO 0.81 K/mm3 (0.84-5.20); LYMPHOCYTES PERCENT AUTO 35 % (21-46); MONOCYTES ABSOLUTE AUTO 0.21 K/mm3 (0.16-1.47); MONOCYTES PERCENT AUTO 9 % (4-13); Mean Corpuscular HGB 27.2 pg (26.0-34.0); Mean Corpuscular HGB Conc 33.3 g/dL (31.5-36.5); Mean Corpuscular Volume 82 fL (80-100); NEUTROPHILS ABSOLUTE AUTO 1.26 K/mm3 (1.96-9.15); NEUTROPHILS PERCENT AUTO 55 % (41-73); Platelet Count 68 K/mm3 (150-400); RDW Coefficient Variation 13.8 % (11.7-14.2); Red Blood Cell Count 4.64 M/mm3 (3.80-5.20)
[2020-11-16 04:58] LABS: Bun/Creatinine Ratio 25.3 (12.0-20.0); Calcium, Blood 8.3 mg/dL (8.5-10.1); Creatinine, Blood 0.99 mg/dL (0.40-1.00); Potassium, Blood 3.9 mmol/L (3.5-5.5)
--- NOTE | 2020-11-16 05:24 | NUR ---
SHIFT SUMMARY PATIENT IS ALERT AND ORIENTED TO SELF AND THAT SHE IS IN THE HOSPITAL ONLY. PLEASANT AND COOPERATIVE WITH CARE. Q2 HOURS WITH REPOSITIONING. BRIEF CHANGES NEEDED, PATIENT IS INCONTINENT. 02 SATS >94 ON 3L VIA NC. SB @50s. VSS, NO ACUTE CHNAGES. CALL LIGHT IN REACH.
--- NOTE | 2020-11-16 16:40 | NUR ---
PATIENT IS PLEASANTLY CONFUSED. SHE KNOWS WHERE SHE IS ON OCCASION HOWEVER OTHER TIMES SHE ASKS THINGS SUCH "DO YOU KNOW WHERE MY MOTHER WENT?" WEANED THE PATIENT FROM 3L O2 NC TO OFF OF O2 AND PATIENT IS MAINTAINING O2 SATS >90% ON RA. PATIENT DOES NOT ATTEMPT TO GET OUT OF BED. CONTINUES ON IV ABX AND IV ANTIVIRAL WITHOUT S/SX OF ADVERSE REACTIONS NOTED OR REPORTED. VITALS STABLE. PATIENT IN BED AT THIS TIME. CALL LIGHT WITHIN REACH.
--- NOTE | 2020-11-17 05:27 | NUR ---
PATIENT IS ALERT AND ORIENTED TO SELF AND PLACE ONLY. PATIENT WAS CRYING ASKING FOR HER MOM AT THE BEGINNING OF SHIFT. EASILY REDIRECTED. PATIENT IS INCONTINENT, BRIEF CHANGED NEEDED, TURNED Q2 HOURS. 02 SATS >90% ON RA. VSS, NO ACUTE CHANGES. CALL LIGHT IN REACH, BED ALARM ON.
--- NOTE | 2020-11-17 16:26 | NUR ---
PATIENT WITHOUT ANY ACUTE CHANGES TO REPORT OF AT THIS TIME. VITALS HAVE BEEN STABLE. CONTINUES ON IV ABX AND IV ANTIVIRALS WITHOUT S/SX OF ADVERSE REACTIONS NOTED OR REPORTED. PATIENT IN BED WATCHING TV AT THIS TIME. CALL LIGHT IN REACH.
[2020-11-18 04:31] LABS: BASOPHILS ABSOLUTE AUTO 0.01 K/mm3 (0.00-0.23); BASOPHILS PERCENT AUTO 0 % (0-2); EOSINOPHILS ABSOLUTE AUTO 0.02 K/mm3 (0.00-0.68); EOSINOPHILS PERCENT AUTO 1 % (0-6); Hematocrit 40.8 % (33.0-51.0); Hemoglobin 13.5 g/dL (11.5-16.0); IMMATURE GRAN ABSOLUTE AUTO 0.03 K/mm3 (0.00-0.10); IMMATURE GRAN PERCENT AUTO 1 % (0-1); LYMPHOCYTES PERCENT AUTO 39 % (21-46); MONOCYTES ABSOLUTE AUTO 0.41 K/mm3 (0.16-1.47); MONOCYTES PERCENT AUTO 10 % (4-13); Mean Corpuscular HGB 26.7 pg (26.0-34.0); Mean Corpuscular HGB Conc 33.1 g/dL (31.5-36.5); Mean Corpuscular Volume 81 fL (80-100); Mean Platelet Volume 10.5 fL (9.1-12.4); NEUTROPHILS ABSOLUTE AUTO 2.04 K/mm3 (1.96-9.15); NEUTROPHILS PERCENT AUTO 50 % (41-73); Platelet Count 98 K/mm3 (150-400); RDW Coefficient Variation 13.9 % (11.7-14.2); RDW Standard Deviation 40.8 fL (35.1-46.3); Red Blood Cell Count 5.05 M/mm3 (3.80-5.20); White Blood Cell Count 4.11 K/mm3 (4.00-11.30)
[2020-11-18 04:44] LABS: Anion Gap 7 mmol/L (6-16); Blood Urea Nitrogen 15 mg/dL (8-24); Bun/Creatinine Ratio 21.1 (12.0-20.0); CO2, Blood 27 mmol/L (21-32); Calcium, Blood 8.2 mg/dL (8.5-10.1); Chloride, Blood 105 mmol/L (98-108); Creatinine, Blood 0.71 mg/dL (0.40-1.00); Glomerular Filtration Rate >60 (60-); Glucose, Blood 200 mg/dL (70-99); Potassium, Blood 3.7 mmol/L (3.5-5.5); Sodium, Blood 139 mmol/L (136-145)
--- NOTE | 2020-11-18 04:49 | NUR ---
MULE DEVELOPER SUMMARY THE PT BECAME VERY EMOTIONAL AROUND BEDTIME SHE WAS CONFUSED ABOUT WHERE SHE WAS STATING THAT HER GRANDMOTHER WAS HERE AND MUST HAVE LEFT. THE PT'S O2 SATS HAVE REMAINED >92% ON RM AIR AND HAS DENIED ANY PAIN THIS SHIFT. VSS AND HS CBG WAS 247, SEMGLEE GIVEN PER ORDER. PT DID DEVELOP SLIGHT BLOODY NOSE AT START OF SHIFT WHICH RESOLVED AND PT WAS ENCOURGED NOT TO MESS WITH HER NOSE SINCE IT HAD STOPPED BLEEDING. PT CARDIOPULMONARY TECHNOLOGIST SAT W PT FOR AN HR AT START OF THE SHIFT WHICH CALMED HER DOWN, THE PT SLEPT FOR MOST OF THE SHIFT. WCTM.
--- NOTE | 2020-11-18 15:57 | NUR ---
SHIFT SUMMARY: NO ACUTE CHANGES T/OUT SHIFT. PT CONTINUES ALERT AND CONFUSED, ON ROOM AIR, SINUS RHYTHM/RUBENS ON MONITOR. PT USED FWW TO TRANSFER SELF TO AND FROM BSC, TOLERATES WELL BUT COMPLAINS OF DIZZINESS. PT WITH DECREASED APPETITE, WILLING TO TRY FOOD ON TRAY BUT DENIES MORE BITES. PT RESTS QUIETLY IN ROOM, DOES NOT USE CALL LIGHT EVEN AFTER MULTIPLE REDIRECTIONS TO CALL BUTTON. PT'S GRANDDAUGHTERS UPDATED VIA PHONE PER PT PERMISSION. REPORT GIVEN TO JORGE HENAO IN MEDICAL DEPT TO RECEIVE PT.
--- NOTE | 2020-11-18 17:49 | NUR ---
PCU 12 TRANSFER TO 326 PT ARRIVE TO RM APPROX 1600. SHE STATE CONTINUING WEAKNESS/FATIGUE. COARSE COUGH NOTED, SHE STATE NONPRODUCTIVE. HRR, RUBENS 59. LUNGS ARE COARSE w COUGH, BIOX 93% RA, SHE STATE NO SHORTNESS OF BREATH @ REST. SKIN DRY/FRAGILE w SCATTERED BRUISING NOTED. ATTENDS CDI. PPP, NO EDEMA BLE. VSS. CBG 241, 5 UNIT MED S/S INSULIN GIVEN. PT IS PLEASANT/COOPERATIVE HOWEVER DEMONSTRATES CONFUSION, UNABLE TO STATE DATE, BECAME CONFUSED w [place], STATE "I DON'T KNOW". BED ALARM ON. ORIENTED TO CALL SYSTEM. WILL MX FREQUENTLY D/T COVID19 PRECAUTIONS & FALL RISK.
[2020-11-19] MEDS ORDERED: DULO60 PO (03:49)
[2020-11-19] MEDS ORDERED: Buspirone HCl15 MG PO (03:50)
[2020-11-19] MEDS ORDERED: BASAGLAR K100 UNIT/1 SC (03:51)
[2020-11-19] MEDS ORDERED: Seroquel Xr50 MG PO (03:52)
[2020-11-19] MEDS ORDERED: HYDPAM25 PO (03:53)
[2020-11-19] MEDS ORDERED: TRIDERM28.4 GM TOP (03:54)
[2020-11-19] MEDS ORDERED: HUMALOG MI100 UNIT/2 SC ×2 (04:10→04:11)
[2020-11-19] MEDS ORDERED: MUPIROCIN1 G1 TOP (04:11)
[2020-11-19] MEDS ORDERED: CEPH500 PO (04:12)
[2020-11-19] MEDS ORDERED: AZIT250 PO (04:13)
--- NOTE | 2020-11-19 04:55 | NUR ---
TROLLEY CAR MECHANIC SUMMARY NO ACUTE CHANGES THIS SHIFT. PT AAOX1-2. KNOWS DAY AND MONTH OF BIRTHDAY BUT UNSURE OF YEAR AND WHEN ASKED WHERE SHE IS SHE WILL ANSWER CHRISTINE. FORGETS SHE'S IN THE HOSPITAL. PT IS CONFUSED BUT PLEASANT AND REDIRECTABLE. IN NO RESPIRATORY DISTRESS, REMAINS ON RA WITH O2 SATS IN THE MID TO HIGH 90'S. BED ALARM ON FOR SAFETY DUE TO CONFUSION HOWEVER PT HAS NOT ATTEMPTED TO GET OUT OF BED WITHOUT ASSIST TONIGHT. WILL CONTINUE TO MONITOR.
[2020-11-19] MEDS ORDERED: DEXA2 (11:35)
--- NOTE | 2020-11-19 16:07 | NUR ---
SUMMARY PT IS A/O X1, WEAK/FATIGUED, LETHARGIC. SHE IS GENERALLY PLEASANT HOWEVER CONFUSED/DISORIENTED. SHE @ X'S CAN BECOME ANXIOUS, YELLS OUT, REQUIRES FREQUENT REASSURANCE/REORIENTATION. DURING BEDBATH TODAY NOTED MULT AREAS OF YEAST RASH SKINFOLDS/KYLE AREA. ORDER MICONAZOLE PWDR. PT HAS DECLINED OOB TODAY. INCONT-IN ATTENDS, MULT VOIDS, NO BM. SHE DOES NOT FEED HERSELF WELL, REQUIRES ASSIST W MEALS & FLUIDS. HAVE ENCOURAGED ORAL INTAKE TODAY. SHE CONTINUES TO RECOVER FROM COVID19, ORAL DECADRON CONTINUES. DR SUNIL TRAN TODAY, STATE FINISHED UTI ANTIBX TX. PLAN CONTINUES FOR PT TO TRANSFER TO SNF WHEN APPROP. VSS.
--- NOTE | 2020-11-20 06:22 | NUR ---
SHIFT SUMMARY PT IS A 80 Y/O FEMALE, ADMITTED FOR ACUTE RESPIRATORY FAILURE AND COVID-19 POSITIVE. CURRENTLY IN ENHANCED ISOLATION. PT IS A&O X SELF ONLY, BEDREST, INCONTINENT. NO C/O PAIN, NAUSEA OR SOB. SATTING > 90% ON RA. VITAL SIGNS STABLE. PT SLEPT WELL THROUGH THE NIGHT. NO ACUTE CHANGES IN PT CONDITION NOTED. WILL CONTINUE TO MONITOR AND TREAT PER EMAR UNTIL HAND OFF TO DAY SHIFT RN.
[2020-11-20] MEDS ORDERED: INSULANPEN SC (12:14)
[2020-11-20] MEDS ORDERED: [UNRECOGNIZED DRUG - OTHER] TOP (12:15)
--- NOTE | 2020-11-20 13:11 | NUR ---
PT WAS DISCHARGED ALERT AND ORIENTEDX1 (SELF) VIA WHEELCHAIR AND [place] [facility]. PT BELONGING WERE AT SIDE, IV DC'D AND WNL, PATIENT MADE NO COMPLAINTS OF PAIN OR DISCOMFORT AT THE TIME OF DC. REPORT WAS GIVEN TO MARICHUY PATEL AT [facility].
== END 2020-11-20 12:35 | DRG 871 ==
LOC: ER 21:09 → PCU 23:47 → ER 11-14 00:37 → PCU 11-14 00:50 → MEDS 11-18 16:01 → PCU 11-18 16:01 → MEDS 11-18 20:22
PROVIDERS: Emergency Medicine; Family Medicine; Hospitalist; ADMIT Internal Medicine
PROC: XW033E5 Introduction of Remdesivir Anti-infective into Peripheral Vein, Percutaneous Approach, New Technology Group 5 (ICD-10-PCS; principal; 2020-11-14)
PROC: XW033E5 Introduction of Remdesivir Anti-infective into Peripheral Vein, Percutaneous Approach, New Technology Group 5 (ICD-10-PCS; 2020-11-15)
PROC: XW033E5 Introduction of Remdesivir Anti-infective into Peripheral Vein, Percutaneous Approach, New Technology Group 5 (ICD-10-PCS; 2020-11-16)
PROC: XW033E5 Introduction of Remdesivir Anti-infective into Peripheral Vein, Percutaneous Approach, New Technology Group 5 (ICD-10-PCS; 2020-11-17)
DX: A41.89 Other specified sepsis (principal); U07.1 COVID-19; J96.01 Acute respiratory failure with hypoxia; I26.02 Saddle embolus of pulmonary artery with acute cor pulmonale; J12.82 Pneumonia due to coronavirus disease 2019; E87.1 Hypo-osmolality and hyponatremia; N39.0 Urinary tract infection, site not specified; I82.451 Acute embolism and thrombosis of right peroneal vein; I82.412 Acute embolism and thrombosis of left femoral vein; R65.20 Severe sepsis without septic shock; Z79.4 Long term (current) use of insulin; Z87.891 Personal history of nicotine dependence; Z96.651 Presence of right artificial knee joint; F03.90 Unspecified dementia, unspecified severity, without behavioral disturbance, psychotic disturbance, mood disturbance, and anxiety; Z85.3 Personal history of malignant neoplasm of breast; E11.9 Type 2 diabetes mellitus without complications; D70.9 Neutropenia, unspecified; I27.20 Pulmonary hypertension, unspecified; I10 Essential (primary) hypertension
CPT/HCPCS: 0241U; 36415; 51701; 71045; 71260; 80048; 80053; 81001; 82947; 83690; 83880; 84145; 84484; 85025; 85027; 85049; 85610; 85730; 87077; 87086; 87186; 93005; 93010; 93306; 93970; 94762; 96365-59; 96366-59; 97110; 97116; 97161; 97165; 97530; 99284-25; 99285-25; A9270; J0696; J1644; J1650; Q9967

== ENCOUNTER → 2021-01-28 | Outpatient (CLI) | payer MEDICARE ==
[~2021-01-28] MED LIST changes: +AZIT250 PO; +BASAGLAR K100 UNIT/1 SC; +Buspirone HCl15 MG PO; +DEXA2; +DULO60 PO; +HUMALOG MI100 UNIT/2 SC; +HYDPAM25 PO; +INSULIN LI100 UNIT/7 SQ; +MUPIROCIN1 G1 TOP; +Seroquel Xr50 MG PO; +TRIDERM28.4 GM TOP; +[UNRECOGNIZED DRUG - OTHER] TOP
[2021-01-28 12:16] LABS: BASOPHILS ABSOLUTE AUTO 0.03 K/mm3 (0.00-0.23); BASOPHILS PERCENT AUTO 1 % (0-2); EOSINOPHILS PERCENT AUTO 7 % (0-6); Hematocrit 38.9 % (33.0-51.0); Hemoglobin 12.3 g/dL (11.5-16.0); IMMATURE GRAN ABSOLUTE AUTO 0.02 K/mm3 (0.00-0.10); IMMATURE GRAN PERCENT AUTO 0 % (0-1); LYMPHOCYTES ABSOLUTE AUTO 1.12 K/mm3 (0.84-5.20); LYMPHOCYTES PERCENT AUTO 25 % (21-46); MONOCYTES PERCENT AUTO 9 % (4-13); Mean Corpuscular HGB 28.3 pg (26.0-34.0); Mean Corpuscular HGB Conc 31.6 g/dL (31.5-36.5); Mean Corpuscular Volume 89 fL (80-100); Mean Platelet Volume 11.7 fL (9.1-12.4); NEUTROPHILS ABSOLUTE AUTO 2.67 K/mm3 (1.96-9.15); NEUTROPHILS PERCENT AUTO 59 % (41-73); Platelet Count 106 K/mm3 (150-400); RDW Coefficient Variation 14.5 % (11.7-14.2); RDW Standard Deviation 47.3 fL (35.1-46.3); Red Blood Cell Count 4.35 M/mm3 (3.80-5.20); White Blood Cell Count 4.54 K/mm3 (4.00-11.30)
[2021-01-28 16:40] LABS: Alanine Aminotransfer (ALT/SGP 30 U/L (12-78); Albumin/Globulin Ratio 0.9 (0.8-1.8); Alk Phos 130 U/L (50-136); Anion Gap 7 mmol/L (6-16); Aspartate Aminotrans (AST/SGOT 38 U/L (12-37); Bilirubin, Total 0.7 mg/dL (0.1-1.0); Blood Urea Nitrogen 14 mg/dL (8-24); Bun/Creatinine Ratio 17.5 (12.0-20.0); CO2, Blood 26 mmol/L (21-32); Calcium, Blood 8.7 mg/dL (8.5-10.1); Chloride, Blood 102 mmol/L (98-108); Globulin, Blood 3.2 g/dL (2.2-4.0); Glomerular Filtration Rate >60 (60-); Glucose, Blood 455 mg/dL (70-99); Potassium, Blood 4.6 mmol/L (3.5-5.5); Sodium, Blood 135 mmol/L (136-145); Total Protein, Blood 6.2 g/dL (6.4-8.2)
== END | disposition home or self-care (01) ==
LOC: LAB 10:00 → LAB SHORT 10:00
PROVIDERS: Hospitalist
DX: E88.89 Other specified metabolic disorders (principal); E11.9 Type 2 diabetes mellitus without complications; F41.1 Generalized anxiety disorder
CPT/HCPCS: 80053; 83036; 85025

== ENCOUNTER 2021-03-28 09:03 | Emergency (ER) | payer MEDICARE ==
[~2021-03-28] VITALS: Ht 165.1 cm; Wt 86.2 kg
== END 2021-03-28 10:35 | disposition home or self-care (01) ==
LOC: ER 09:03
DX: L23.3 Allergic contact dermatitis due to drugs in contact with skin (principal); T49.5X5A Adverse effect of ophthalmological drugs and preparations, initial encounter; Z88.8 Allergy status to other drugs, medicaments and biological substances; Z79.899 Other long term (current) drug therapy; Z79.4 Long term (current) use of insulin; Z79.02 Long term (current) use of antithrombotics/antiplatelets
CPT/HCPCS: 99283; A9270; J1100

== ENCOUNTER → 2021-05-14 | Outpatient (CLI) | payer MEDICARE ==
[2021-05-14 15:37] LABS: Appearance, Urine Hazy (Clear); Bilirubin, Urine Neg (Neg); Blood, Urine 4+ (Neg); Color, Urine Yellow (P-Yellow); Glucose Qualitative, Urine Neg (Neg); Ketones, Urine Neg (Neg); Leukocyte Esterase, Urine 3+ (Neg); Nitrite, Urine Pos (Neg); Protein, Urine 2+ (Neg); Urobilinogen, Urine NORM (Normal); pH, Urine 6.5 (5.0-8.0)
[2021-05-14 15:55] LABS: Calcium Oxalate Crystals Few /hpf; Red Blood Cells, Urine 0-2 /hpf (0-2); White Blood Cells, Urine 50-100 /hpf (0-5)
[2021-05-14 15:56] LABS: Bacteria Many /hpf; Squamous Epithelial Cells Few /hpf (Few)
== END | disposition home or self-care (01) ==
LOC: LAB SHORT 15:05 → LAB 15:05
PROVIDERS: Hospitalist
DX: N39.0 Urinary tract infection, site not specified (principal)
CPT/HCPCS: 81001; 87077; 87086; 87186

== ENCOUNTER → 2021-06-23 | Outpatient (CLI) | payer MEDICARE ==
[2021-06-23 16:55] LABS: Appearance, Urine Cloudy (Clear); Bilirubin, Urine Neg (Neg); Blood, Urine 3+ (Neg); Color, Urine Yellow (P-Yellow); Glucose Qualitative, Urine 2+ (Neg); Ketones, Urine Neg (Neg); Leukocyte Esterase, Urine 3+ (Neg); Nitrite, Urine Pos (Neg); Protein, Urine 3+ (Neg); Urobilinogen, Urine NORM (Normal)
[2021-06-23 17:15] LABS: White Blood Cells, Urine TNTC /hpf (0-5)
[2021-06-23 17:17] LABS: Bacteria Many /hpf; Squamous Epithelial Cells Few /hpf (Few)
== END | disposition home or self-care (01) ==
LOC: LAB 14:50 → LAB SHORT 14:50
PROVIDERS: Hospitalist
DX: N39.0 Urinary tract infection, site not specified (principal)
CPT/HCPCS: 81001; 87077; 87086; 87186

== ENCOUNTER 2021-07-02 21:41 | Emergency (ER) | payer MEDICARE ==
[~2021-07-02] VITALS: Ht 172.7 cm; Wt 90.7 kg
[2021-07-02] MEDS ORDERED: CEPH500 PO (22:55)
== END 2021-07-02 23:38 | disposition home or self-care (01) ==
LOC: ER 21:41
DX: L03.811 Cellulitis of head [any part, except face] (principal); E11.9 Type 2 diabetes mellitus without complications; Z88.8 Allergy status to other drugs, medicaments and biological substances; Z88.1 Allergy status to other antibiotic agents; Z79.899 Other long term (current) drug therapy; Z79.4 Long term (current) use of insulin; Z79.02 Long term (current) use of antithrombotics/antiplatelets; Z87.442 Personal history of urinary calculi; Z87.891 Personal history of nicotine dependence
CPT/HCPCS: 99283; A9270

== ENCOUNTER 2021-10-21 16:42 | Emergency (ER) | payer MEDICARE ==
[~2021-10-21] VITALS: Ht 170.2 cm; Wt 90.7 kg
[2021-10-21] MEDS ORDERED: CEPH500 PO (18:01)
== END 2021-10-21 18:51 | disposition home or self-care (01) ==
LOC: ER 16:42
DX: H60.11 Cellulitis of right external ear (principal); E11.9 Type 2 diabetes mellitus without complications; Z79.4 Long term (current) use of insulin; Z88.8 Allergy status to other drugs, medicaments and biological substances
CPT/HCPCS: 99283; A9270

== ENCOUNTER → 2022-03-20 | Outpatient (CLI) | payer MEDICARE ==
[2022-03-20 16:06] LABS: Source, Urine Voided
[2022-03-20 17:09] LABS: Appearance, Urine Hazy (Clear); Bilirubin, Urine Neg (Neg); Blood, Urine 3+ (Neg); Glucose Qualitative, Urine Neg (Neg); Ketones, Urine Neg (Neg); Leukocyte Esterase, Urine 3+ (Neg); Nitrite, Urine Pos (Neg); Protein, Urine 1+ (Neg); Urobilinogen, Urine NORM (Normal)
[2022-03-20 17:38] LABS: Color, Urine Pale Yellow (P-Yellow); White Blood Cells, Urine TNTC /hpf (0-5)
[2022-03-20 17:39] LABS: Bacteria Many /hpf; Squamous Epithelial Cells Few /hpf (Few)
== END | disposition home or self-care (01) ==
LOC: LAB SHORT 16:04
PROVIDERS: Hospitalist
DX: N39.0 Urinary tract infection, site not specified (principal)
CPT/HCPCS: 81001; 87077; 87086; 87186

== ENCOUNTER → 2022-03-31 | Outpatient (CLI) | payer MEDICARE ==
[2022-04-01 11:24] LABS: Appearance, Urine Clear (Clear); Bilirubin, Urine Neg (Neg); Blood, Urine 1+ (Neg); Color, Urine Yellow (P-Yellow); Glucose Qualitative, Urine Neg (Neg); Ketones, Urine Neg (Neg); Leukocyte Esterase, Urine 1+ (Neg); Nitrite, Urine Neg (Neg); Protein, Urine 2+ (Neg); Urobilinogen, Urine 1+ (Normal)
[2022-04-01 12:06] LABS: Bacteria Few /hpf; Red Blood Cells, Urine 0-2 /hpf (0-2); Squamous Epithelial Cells Few /hpf (Few); White Blood Cells, Urine 0-2 /hpf (0-5)
== END | disposition home or self-care (01) ==
LOC: LAB SHORT 19:50
PROVIDERS: Hospitalist
DX: N39.0 Urinary tract infection, site not specified (principal)
CPT/HCPCS: 81001; 87086

== ENCOUNTER 2022-08-26 11:36 | Emergency (ER) | payer MEDICARE ==
[~2022-08-26] VITALS: Ht 170.2 cm; Wt 113.4 kg
[2022-08-26 15:03] LABS: Source, Urine Clean Catch
[2022-08-26 15:23] LABS: BASOPHILS ABSOLUTE AUTO 0.04 K/mm3 (0.00-0.23); BASOPHILS PERCENT AUTO 1 % (0-2); EOSINOPHILS ABSOLUTE AUTO 0.27 K/mm3 (0.00-0.68); EOSINOPHILS PERCENT AUTO 3 % (0-6); Hematocrit 44.2 % (33.0-51.0); Hemoglobin 14.6 g/dL (11.5-16.0); IMMATURE GRAN ABSOLUTE AUTO 0.02 K/mm3 (0.00-0.10); IMMATURE GRAN PERCENT AUTO 0 % (0-1); LYMPHOCYTES ABSOLUTE AUTO 1.88 K/mm3 (0.84-5.20); LYMPHOCYTES PERCENT AUTO 24 % (21-46); MONOCYTES ABSOLUTE AUTO 0.57 K/mm3 (0.16-1.47); MONOCYTES PERCENT AUTO 7 % (4-13); Mean Corpuscular Volume 88 fL (80-100); Mean Platelet Volume 9.7 fL (9.1-12.4); NEUTROPHILS ABSOLUTE AUTO 5.11 K/mm3 (1.96-9.15); NEUTROPHILS PERCENT AUTO 65 % (41-73); Platelet Count 150 K/mm3 (150-400); RDW Coefficient Variation 13.8 % (11.7-14.2); RDW Standard Deviation 44.1 fL (35.1-46.3); Red Blood Cell Count 5.03 M/mm3 (3.80-5.20); White Blood Cell Count 7.89 K/mm3 (4.00-11.30)
[2022-08-26 15:27] LABS: Appearance, Urine Clear (Clear); Bilirubin, Urine Neg (Neg); Blood, Urine 2+ (Neg); Color, Urine Yellow (P-Yellow); Glucose Qualitative, Urine 3+ (Neg); Ketones, Urine Neg (Neg); Leukocyte Esterase, Urine Neg (Neg); Nitrite, Urine Neg (Neg); Protein, Urine 1+ (Neg); Specific Gravity, Urine 1.015 (1.003-1.022); Urobilinogen, Urine NORM (Normal); pH, Urine 6.5 (5.0-8.0)
[2022-08-26 15:47] LABS: Bacteria Few /hpf; Squamous Epithelial Cells Rare /hpf (Few); White Blood Cells, Urine 0-2 /hpf (0-5)
[2022-08-26 15:48] LABS: Magnesium, Blood 2.1 mg/dL (1.6-2.4)
[2022-08-26 15:49] LABS: Albumin, Blood 3.3 g/dL (3.4-5.0); Albumin/Globulin Ratio 0.8 (0.8-1.8); Bilirubin, Total 0.5 mg/dL (0.1-1.0); Bun/Creatinine Ratio 23.6 (12.0-20.0); Calcium, Blood 9.1 mg/dL (8.5-10.1); Creatinine, Blood 0.85 mg/dL (0.40-1.00); Globulin, Blood 4.1 g/dL (2.2-4.0); Potassium, Blood 4.8 mmol/L (3.5-5.5); Thyroid Stimulating Hormone 4.59 uIU/mL (0.360-4.800); Total Protein, Blood 7.4 g/dL (6.4-8.2)
[2022-08-26 16:34] LABS: Influenza A, PCR NEGATIVE (NEGATIVE); Influenza B, PCR NEGATIVE (NEGATIVE); Resp Syncytial Virus, PCR NEGATIVE (NEGATIVE); SARS-Cov-2 (COVID-19) PCR, MMC NEGATIVE (NEGATIVE)
== END 2022-08-26 19:24 | disposition home or self-care (01) ==
LOC: ER 11:36
PROVIDERS: Student in an Organized Health Care Education/Training Program
DX: S01.01XA Laceration without foreign body of scalp, initial encounter (principal); W18.30XA Fall on same level, unspecified, initial encounter; Z88.5 Allergy status to narcotic agent; Z88.1 Allergy status to other antibiotic agents; Z79.899 Other long term (current) drug therapy; Z79.4 Long term (current) use of insulin; Z11.9 Encounter for screening for infectious and parasitic diseases, unspecified; Z87.891 Personal history of nicotine dependence
CPT/HCPCS: 0241U; 36415; 70450; 72125; 80053; 81001; 83735; 84443; 84484; 85025; 90471; 90714; 93005; 93010; 96374; 96376; 99284-25; J3010

== ENCOUNTER → 2022-12-30 | Outpatient (CLI) | payer MEDICARE ==
[2022-12-31 10:24] LABS: Source, Urine Clean Catch
[2022-12-31 11:08] LABS: Appearance, Urine Clear (Clear); Bilirubin, Urine Neg (Neg); Blood, Urine Neg (Neg); Color, Urine Yellow (P-Yellow); Glucose Qualitative, Urine Neg (Neg); Ketones, Urine Neg (Neg); Leukocyte Esterase, Urine Neg (Neg); Nitrite, Urine Neg (Neg); Protein, Urine Neg (Neg); Specific Gravity, Urine 1.005 (1.003-1.022); Urobilinogen, Urine NORM (Normal)
== END | disposition home or self-care (01) ==
LOC: LAB SHORT 20:30
PROVIDERS: Hospitalist
DX: N39.0 Urinary tract infection, site not specified (principal)
CPT/HCPCS: 81003

== ENCOUNTER → 2023-06-01 | Outpatient (CLI) | payer MEDICARE ==
[2023-06-01 19:38] LABS: Anion Gap Unable to Calculate mmol/L (6-16); Blood Urea Nitrogen 15 mg/dL (8-24); Bun/Creatinine Ratio 15.9 (12.0-20.0); CO2, Blood 32 mmol/L (21-32); Calcium, Blood 9.4 mg/dL (8.5-10.1); Chloride, Blood 105 mmol/L (98-108); Creatinine, Blood 0.94 mg/dL (0.40-1.00); Glomerular Filtration Rate 61 (60-); Glucose, Blood 176 mg/dL (70-99); Potassium, Blood 4.1 mmol/L (3.5-5.5); Sodium, Blood 136 mmol/L (136-145)
== END | disposition home or self-care (01) ==
LOC: LAB SHORT 15:30 → LAB 15:30
PROVIDERS: Hospitalist
DX: E11.42 Type 2 diabetes mellitus with diabetic polyneuropathy (principal); I10 Essential (primary) hypertension
CPT/HCPCS: 80048; 83036

== ENCOUNTER → 2023-08-30 | Outpatient (CLI) | payer MEDICARE ==
[2023-08-30 17:32] LABS: Source, Urine Voided
[2023-08-30 19:19] LABS: Appearance, Urine Clear (Clear); Bilirubin, Urine Neg (Neg); Blood, Urine 1+ (Neg); Color, Urine Yellow (P-Yellow); Glucose Qualitative, Urine 1+ (Neg); Ketones, Urine Neg (Neg); Leukocyte Esterase, Urine Neg (Neg); Nitrite, Urine Neg (Neg); Protein, Urine Neg (Neg); Urobilinogen, Urine NORM (Normal); pH, Urine 6.5 (5.0-8.0)
[2023-08-30 19:54] LABS: Bacteria Few /hpf; Red Blood Cells, Urine 0-2 /hpf (0-2); Squamous Epithelial Cells Rare /hpf (Few); White Blood Cells, Urine 0-2 /hpf (0-5)
== END | disposition home or self-care (01) ==
LOC: LAB SHORT 17:30 → LAB 17:30
PROVIDERS: Hospitalist
DX: N39.0 Urinary tract infection, site not specified (principal)
CPT/HCPCS: 81001

== ENCOUNTER → 2023-09-14 | Outpatient (CLI) | payer MEDICARE ==
[2023-09-14 12:55] LABS: Source, Urine Clean Catch
[2023-09-14 14:17] LABS: Appearance, Urine Turbid (Clear); Bilirubin, Urine Neg (Neg); Blood, Urine 5+ (Neg); Color, Urine Yellow (P-Yellow); Glucose Qualitative, Urine Neg (Neg); Ketones, Urine Neg (Neg); Leukocyte Esterase, Urine 3+ (Neg); Nitrite, Urine Neg (Neg); Protein, Urine 3+ (Neg); Specific Gravity, Urine 1.015 (1.003-1.022); Urobilinogen, Urine 1+ (Normal)
[2023-09-14 14:28] LABS: Bacteria Mod /hpf; Squamous Epithelial Cells Few /hpf (Few); White Blood Cells, Urine TNTC /hpf (0-5)
== END ==
LOC: LAB SHORT 11:05 → LAB 11:05
PROVIDERS: Hospitalist
DX: N39.0 Urinary tract infection, site not specified (principal)
CPT/HCPCS: 81001; 87077; 87086; 87147; 87186

== ENCOUNTER → 2023-11-04 | Outpatient (CLI) | payer MEDICARE ==
[2023-11-04 17:09] LABS: Source, Urine Clean Catch
[2023-11-04 18:38] LABS: Appearance, Urine Hazy (Clear); Bilirubin, Urine Neg (Neg); Blood, Urine 2+ (Neg); Color, Urine Yellow (P-Yellow); Glucose Qualitative, Urine Neg (Neg); Ketones, Urine Neg (Neg); Leukocyte Esterase, Urine 3+ (Neg); Nitrite, Urine Pos (Neg); Protein, Urine 2+ (Neg); Urobilinogen, Urine NORM (Normal)
[2023-11-04 18:51] LABS: White Blood Cells, Urine 50-100 /hpf (0-5)
[2023-11-04 18:52] LABS: Bacteria Many /hpf; Squamous Epithelial Cells Few /hpf (Few); Transitional Epithelial Cells Rare /hpf (0-Rare)
== END ==
LOC: LAB SHORT 17:07 → LAB 17:07
PROVIDERS: Hospitalist
DX: N39.0 Urinary tract infection, site not specified (principal)
CPT/HCPCS: 81001; 87077; 87086; 87186

== ENCOUNTER → 2023-11-19 | Outpatient (CLI) | payer MEDICARE ==
[2023-11-19 17:45] LABS: Appearance, Urine Cloudy (Clear); Bilirubin, Urine Neg (Neg); Blood, Urine 3+ (Neg); Color, Urine Yellow (P-Yellow); Glucose Qualitative, Urine Neg (Neg); Ketones, Urine Neg (Neg); Leukocyte Esterase, Urine 3+ (Neg); Nitrite, Urine Pos (Neg); Protein, Urine 2+ (Neg); Urobilinogen, Urine NORM (Normal)
[2023-11-19 17:54] LABS: Bacteria Many /hpf; Hyaline Casts 0-2 /lpf (0-2); Red Blood Cells, Urine 0-2 /hpf (0-2); Squamous Epithelial Cells Few /hpf (Few); White Blood Cells, Urine 50-100 /hpf (0-5)
== END | disposition home or self-care (01) ==
LOC: LAB SHORT 16:04
PROVIDERS: Hospitalist
DX: N39.0 Urinary tract infection, site not specified (principal)
CPT/HCPCS: 81001; 87077; 87086; 87147; 87186

== ENCOUNTER → 2024-02-01 | Outpatient (CLI) | payer MEDICARE | END | disposition home or self-care (01) | LOC: LAB SHORT 17:56 → LAB 17:56 | DX: N39.0 Urinary tract infection, site not specified (principal) ==

== ENCOUNTER → 2024-03-10 | Outpatient (CLI) | payer MEDICARE ==
[2024-03-10 15:33] LABS: Bun/Creatinine Ratio 22.1 (12.0-20.0); Calcium, Blood 8.3 mg/dL (8.5-10.1); Creatinine, Blood 1.13 mg/dL (0.40-1.00); Potassium, Blood 4.2 mmol/L (3.5-5.5)
== END ==
LOC: LAB SHORT 14:33 → LAB 14:33
PROVIDERS: Hospitalist
DX: E11.65 Type 2 diabetes mellitus with hyperglycemia (principal)
CPT/HCPCS: 80048; 83036

== ENCOUNTER → 2024-04-12 | Outpatient (CLI) | payer MEDICARE, OTHER ==
[2024-04-12 11:23] LABS: Source, Urine Clean Catch
[2024-04-12 13:26] LABS: Appearance, Urine Hazy (Clear); Bilirubin, Urine Neg (Neg); Blood, Urine 3+ (Neg); Color, Urine Yellow (P-Yellow); Glucose Qualitative, Urine Neg (Neg); Ketones, Urine Neg (Neg); Leukocyte Esterase, Urine 3+ (Neg); Nitrite, Urine Pos (Neg); Protein, Urine 2+ (Neg); Urobilinogen, Urine NORM (Normal)
[2024-04-12 13:49] LABS: Bacteria Many /hpf; Squamous Epithelial Cells Rare /hpf (Few); White Blood Cells, Urine 50-100 /hpf (0-5)
== END | disposition home or self-care (01) ==
LOC: LAB SHORT 11:22 → LAB 11:22
PROVIDERS: Hospitalist
DX: N39.0 Urinary tract infection, site not specified (principal)
CPT/HCPCS: 81001; 87077; 87086; 87186

== ENCOUNTER → 2024-07-21 | Outpatient (CLI) | payer MEDICARE, OTHER ==
[2024-07-21 15:25] LABS: Source, Urine Clean Catch
[2024-07-21 16:14] LABS: Appearance, Urine Cloudy (Clear); Bilirubin, Urine Neg (Neg); Blood, Urine 5+ (Neg); Color, Urine Yellow (P-Yellow); Glucose Qualitative, Urine Neg (Neg); Ketones, Urine Neg (Neg); Leukocyte Esterase, Urine 3+ (Neg); Nitrite, Urine Neg (Neg); Protein, Urine 2+ (Neg); Specific Gravity, Urine 1.015 (1.003-1.022); Urobilinogen, Urine NORM (Normal)
[2024-07-21 16:29] LABS: Bacteria Many /hpf; Red Blood Cells, Urine 0-2 /hpf (0-2); Squamous Epithelial Cells Few /hpf (Few); White Blood Cells, Urine 50-100 /hpf (0-5)
== END ==
LOC: LAB 15:23 → LAB SHORT 15:23
PROVIDERS: Hospitalist
DX: N39.0 Urinary tract infection, site not specified (principal)
CPT/HCPCS: 81001; 87077; 87086; 87186

== ENCOUNTER → 2024-11-06 | Outpatient (CLI) | payer MEDICARE, OTHER ==
[2024-11-06 15:10] LABS: BASOPHILS ABSOLUTE AUTO 0.04 K/mm3 (0.00-0.23); BASOPHILS PERCENT AUTO 1 % (0-2); EOSINOPHILS ABSOLUTE AUTO 0.21 K/mm3 (0.00-0.68); EOSINOPHILS PERCENT AUTO 4 % (0-6); Hematocrit 41.3 % (33.0-51.0); Hemoglobin 13.8 g/dL (11.5-16.0); IMMATURE GRAN ABSOLUTE AUTO 0.01 K/mm3 (0.00-0.10); IMMATURE GRAN PERCENT AUTO 0 % (0-1); LYMPHOCYTES ABSOLUTE AUTO 1.58 K/mm3 (0.84-5.20); LYMPHOCYTES PERCENT AUTO 28 % (21-46); MONOCYTES ABSOLUTE AUTO 0.49 K/mm3 (0.16-1.47); MONOCYTES PERCENT AUTO 9 % (4-13); Mean Corpuscular HGB 29.9 pg (26.0-34.0); Mean Corpuscular HGB Conc 33.4 g/dL (31.5-36.5); Mean Corpuscular Volume 89 fL (80-100); Mean Platelet Volume 10.4 fL (9.1-12.4); NEUTROPHILS ABSOLUTE AUTO 3.23 K/mm3 (1.96-9.15); NEUTROPHILS PERCENT AUTO 58 % (41-73); Platelet Count 116 K/mm3 (150-400); RDW Coefficient Variation 13.5 % (11.7-14.2); RDW Standard Deviation 44.2 fL (35.1-46.3); Red Blood Cell Count 4.62 M/mm3 (3.80-5.20); White Blood Cell Count 5.56 K/mm3 (4.00-11.30)
[2024-11-06 16:36] LABS: Albumin/Globulin Ratio 0.8 (0.8-1.8); Bilirubin, Total 0.4 mg/dL (0.1-1.0); Calcium, Blood 8.3 mg/dL (8.5-10.1); Globulin, Blood 3.8 g/dL (2.2-4.0); Potassium, Blood 4.2 mmol/L (3.5-5.5); Thyroid Stimulating Hormone 1.93 uIU/mL (0.360-4.800); Total Protein, Blood 6.8 g/dL (6.4-8.2)
== END | disposition home or self-care (01) ==
LOC: LAB 13:28 → LAB SHORT 13:28
PROVIDERS: Internal Medicine
DX: E11.59 Type 2 diabetes mellitus with other circulatory complications (principal); I10 Essential (primary) hypertension; E55.9 Vitamin D deficiency, unspecified; E53.8 Deficiency of other specified B group vitamins; Z79.4 Long term (current) use of insulin
CPT/HCPCS: 80053; 82306; 82607; 82746; 83036; 84443; 85025